=== PATIENT | male | born 1970 | race Caucasian/White ===

== ENCOUNTER 2025-04-28 14:30 | Inpatient (IN) | payer OTHER, SELFPAY ==
[2025-04-28] VITALS (12 sets, daily range): BP systolic 114–201; BP diastolic 62–110; BMI 34.4
--- NOTE | 2025-04-28 09:28 | ED.CVA ---
History of Present Illness
General
Chief Complaint: CVA/TIA Symptoms
Source: patient
Exam Limitations: none
Time Seen by Provider: 04/28/25 09:22
Nursing documentation reviewed up to this point in time: agreed with
Onset of Stroke Symptoms
Onset of symptoms known: Yes
Date of onset of symptoms: 04/27/25
Time of onset of symptoms: 18:00
Time pt last seen normal is known: Yes
Date last time pt seen normal: 04/27/25
History of Present Illness
History of Present Illness:
Note:
CHIEF COMPLAINT(S)
Headache, nausea, and right-sided weakness.
HISTORY OF PRESENT ILLNESS
The patient is a 54-year-old male who presents with symptoms of headache, nausea, and weakness on the left side of the body, which began at 6 p.m. the previous evening. The patient mentions a slight difficulty walking and a weak feeling upon getting
out of the truck, though he also reports driving to urgent care and then to the current facility without major issues. The patient denies any facial numbness or significant trouble with vision, noting some blurring as normal for him. He reports that
symptoms persist, and physical examination indicates no facial droop or significant neurological deficits.
PAST SURGICAL HISTORY
History of knee surgery.
SOCIAL HISTORY
The patient drinks red wine occasionally.
PHYSICAL EXAM
General: Alert, no acute distress.
Skin: Warm, dry.
Head: Normocephalic, atraumatic.
Neck: Supple, trachea midline, no jugular venous distention observed.
Eye, Ears, Nose, and Throat: Pupils equal and reactive to light. Oral mucosa moist.
Cardiovascular: S1 S2 normal, no murmurs, normal peripheral perfusion, no edema.
Respiratory: Lung sounds clear bilaterally, respirations are non-labored.
Gastrointestinal: Abdomen soft, non-tender, and non-distended.
Back: Normal range of motion, normal alignment.
Musculoskeletal: Normal range of motion, normal strength.
Neurological: Cranial nerves 2 through 12 intact, no focal neurological deficit observed.
Psychiatric: Cooperative, appropriate mood and affect.
PLAN
The plan includes a CT scan of the head, consultation with neurology, blood tests, and an EKG to evaluate further for potential causes of the patients symptoms.
DIFFERENTIAL DIAGNOSIS
The Differential Diagnosis includes, in no particular order and is not limited to:
1. Transient Ischemic Attack
2. Stroke
3. Migraine
4. [place] Palsy
5. Hypertensive Crisis
6. Vestibular Disorder
7. Tumor
8. Multiple Sclerosis
9. Hypoglycemia
10. Alcohol Withdrawal
CARE-UPDATE
04/28/25 - 13:18
No acute findings on CT head or CT angiography head and neck. Neurology recommends admission. Diagnosed with acute cerebral-vascular event (CDA) versus transient ischemic attack (TIA) versus hypertensive emergency. Blood pressure improved with IV
hydralazine, repeat dose planned. Patient administered aspirin.
EKG
My independent EKG interpretation is:
- Time of EKG: Not specified
- Rhythm: Normal sinus rhythm
- Heart rate: 65 bpm
- [place] Interval: Normal
- QRS Duration: Normal
- QT Interval: Normal
- [place]: Normal
- Abnormalities: None noted
Disposition:
SUMMARY OF ENCOUNTER
The patient, a 54-year-old male, presented to the emergency department with symptoms of headache, nausea, and left-sided weakness. These symptoms began the previous evening and included slight difficulty walking and weakness upon getting out of a
truck. The patient drove himself to the current medical facility. Despite stable vitals and no acute distress, the presentation was suggestive of a potential acute cerebrovascular accident (CVA) or transient ischemic attack (TIA). No acute findings
appeared on the CT of the head or angiography. Blood pressure was improved with intravenous hydralazine. An EKG was performed showing normal sinus rhythm, and no contraindication for thrombolysis with a low Modified NIH Stroke Scale (MAHSS) score.
Neurology was consulted and recommended hospital admission for telemetry monitoring. Aspirin was administered in light of a potential acute CBA versus hypertensive urgency. TNK (Tenecteplase) was not indicated due to timing.
DISPOSITION
Admit to telemetry unit.
ASSESSMENT
The patient is evaluated for an acute cerebrovascular event, with differential diagnoses including transient ischemic attack and hypertensive emergency.
EMERGENCY TREATMENTS ADMINISTERED
The patient was administered aspirin and treated with intravenous hydralazine to manage blood pressure.
MANAGEMENT OF THE PATIENTS CARE WAS DISCUSSED WITH
Consultation with neurology led to the recommendation for hospital admission to telemetry. A hospitalist was also involved in the discussion regarding the patients management.
PLAN
The patient will be admitted to telemetry for continuous monitoring and further evaluation by neurology to differentiate between an acute cerebral event and other possible causes. Blood pressure management will continue with repeat doses of
hydralazine and further medication adjustment as necessary.
INDEPENDENT REVIEW OF LABS AND INTERPRETATION OF TESTS
- My independent interpretation of the EKG is a normal sinus rhythm with a heart rate of 65 bpm, normal [place] interval, QRS duration, QT interval, axis, and no abnormalities noted.
- My independent review of the CT scan of the head shows no acute findings.
MEDICATION RECONCILIATION
Aspirin and intravenous hydralazine were administered as part of the emergency treatment.
MEDICAL DECISION MAKING
- Number and Complexity of Problems Addressed: Chronic conditions affecting care include the history of knee surgery. Differential diagnosis includes transient ischemic attack, stroke, migraine, [place] palsy, hypertensive crisis, vestibular disorder,
tumor, multiple sclerosis, hypoglycemia, and alcohol withdrawal.
- Data:
Category 1: An EKG was completed with normal results. A CT scan of the head was reviewed and showed no acute findings.
Category 3: Discussion of management with neurology and a hospitalist regarding patient care and the decision for admission.
- Risk: The intricate decision-making process involved identifying the need for hospital admission, considering the potential for an acute cerebrovascular accident and the complexity of managing elevated blood pressure.
DIAGNOSIS
1. Acute cerebrovascular accident (CVA) - ICD-10: I63.9
2. Hypertensive urgency - ICD-10: I16.0
Phy Exam
Physical Exam
Physical Exam:
.
Course
Orders/Labs/Results
Orders:
Orders
04/28/25 09:29
Electrocardiogram (*1) Stat
Reason for Study: Other
Other Reason for Exam: neuro symptoms
Cardiac Monitoring- Treatment ONCE
EKG- Treatment ONCE
Pulse Ox/cont/shift [RESP] Stat
Quantity: 1
04/28/25 09:33
CT Head & Neck Angio W/wo IV Urgent
Comment:
Reason For Exam: left side numbness
HydrALAZINE [Apresoline] 10 mg IV NOW STA
04/28/25 09:34
Cardiovascular Evaluation Urgent
Comment: ADD ON
Complete Blood Count/With Diff Urgent
Comprehensive Metabolic Panel Urgent
Glycohemoglobin (HgbA1c) Urgent
PTT Urgent
Prothrombin Time Urgent
04/28/25 12:22
HydrALAZINE [Apresoline] 10 mg IV NOW STA
04/28/25 12:27
CRP [C-Reactive Protein] Routine
Comment: May add to blood in lab
Erythrocyte Sed Rate Routine
Comment: may add to blood in lab
Ferritin Routine
Folate Routine
Comment: May add to blood in lab
TSH Reflex To Free T4 Routine
Comment: May add to blood in lab
Vitamin B12 Routine
Comment: May add to blood in lab or draw as routine
04/28/25 12:29
Alcohol Routine
CPK Isoenzyme Routine
Comment: May add to blood in lab
Urine Drug Abuse Screen Routine
Lorazepam [Ativan] 1 mg PO ONCE ONE
04/28/25 12:30
MR Brain W/o & With Contrast Routine
Comment:
Reason For Exam: Left sided numbness
Recent pill cam endoscopy?: No
04/28/25 12:38
NEUROLOGY CONSULT Urgent
Consulting Provider: Denzel Fair
Was physician already notified: Yes
Reason for consult: left side numbness
04/28/25 12:45
Add On- LAB Urgent
Tests Added?: alcohol, tsh reflex, ferritin, folate, vit B12, CRP, sed rate
04/28/25 13:02
Add On- LAB Routine
Tests Added?: lipid panel, hbA1c
04/28/25 13:06
Clopidogrel Bisulfate [Plavix] 300 mg PO NOW STA
04/28/25 14:00
Aspirin Chewable [Low Strength Aspirin] 81 mg PO DAILY
04/29/25 08:00
Clopidogrel Bisulfate [Plavix] 75 mg PO DAILY
Abnormal Lab Results
04/28/25
09:34
MCH 31.1 H pg
(27.0-31.0)
Glucose 114 H mg/dl
(70-99)
Total Bilirubin 1.4 H mg/dl
(0.2-1.3)
04/28/25 09:34
04/28/25 09:34
Vital Signs
Initial and Last Documented VS:
Initial Vital Signs
Temp Pulse Resp BP Pulse Ox
97.9 F 67 16 201/97 98
04/28/25 09:10 04/28/25 09:10 04/28/25 09:10 04/28/25 09:10 04/28/25 09:10
Last Documented Vital Signs
Temp Pulse Resp BP Pulse Ox
97.9 F 73 16 190/103 98
04/28/25 09:10 04/28/25 13:00 04/28/25 13:03 04/28/25 13:00 04/28/25 13:03
*Pulse Oximetry
SaO2: 98
Oxygen Mode of Delivery: Room air
Patient hypoxic: no
*Critical Care Note
Total Time (30-74mins, 75-104mins- exclusive of procedures): 32
comment:
Critical care statement: A total of 32 minutes of critical care time was provided for this patient. This includes management of unstable vital signs, evaluation of the patient at bedside, reviewing the patient's pertinent medical records, discussion
with consultants, review of old EKGs and review of pertinent medical records. This time with separate from time utilized to perform the aforementioned documented procedures
ED Attending Note
-
Portions of this chart may have been created with voice recognition software.� Occasional wrong word or��sound alike� substitutions may have occurred due to the inherent limitations of voice recognition software.
Discharge Plan
Departure
Patient Disposition: Admit
Date of Disposition: 04/28/25
Time of Disposition: 13:11
Admit to: Telemetry
Presentation/result/management discussed w/ accepting MD/DO: Hospitalist
Patient with high blood pressure during this ER visit?: Yes
Condition: Fair
Discharge Problem:
Acute cerebrovascular accident (CVA), Hypertensive urgency
Referrals:
UNKNOWN - PT DOES,NOT KNOW [Family Provider]
Interventions
Interventions:
*Risk Screen - Suicide Last Done: 04/28/25 09:10
*General Assessment Last Done: 04/28/25 09:36
*Neglect/Abuse Screening Last Done: 04/28/25 09:10
*ED- Fall Risk Assessment Last Done: 04/28/25 09:36
*ED COVID-19 Vaccine History Last Done: 04/28/25 09:36
ED- Pulmonary Assessment Last Done: 04/28/25 09:38
ED- Neurological Assessment Last Done: 04/28/25 09:38
ED- Cardiac Assessment Last Done: 04/28/25 09:38
ED Swallowing Screen Last Done: 04/28/25 09:37
Discharge Date and Time
Print Language: JAPANESE
[2025-04-28] MEDS: APRESOLINE 10 MG IV ×2 (09:42→13:08)
[2025-04-28 09:57] LABS: Hematocrit 44.6 % (39.0-52.0); Hemoglobin 15.5 g/dL (13.0-18.0); Mean Corp Hgb Conc. 34.8 g/dL (33.0-37.0); Mean Corpuscular Volume 89.6 fL (80.0-94.0); Nucleated Red Blood Cells % 0 % (-); Platelet Count 191 10^3/uL (130-400); Red Cell Dist. Width 12.9 % (11.5-14.5)
[2025-04-28 09:59] LABS: INR 0.95; PT 13.0 Sec (11.4-14.6)
[2025-04-28 10:00] LABS: APTT 25.1 Sec (23.4-35.0)
[2025-04-28 10:01] LABS: ALT (SGPT) 44 U/L (0-50); AST (SGOT) 46 U/L (17-59); Albumin 4.6 g/dl (3.5-5.0); Alkaline Phosphatase 67 U/L (38-126); Blood Urea Nitrogen 11 mg/dl (9-20); Calcium 9.2 mg/dl (8.4-10.2); Carbon Dioxide 24 mmol/L (22-30); Chloride 106 mmol/L (98-107); Glucose 114 mg/dl (70-99); Potassium 4.2 mmol/L (3.5-5.1); Sodium 137 mmol/L (135-145); Total Protein 7.2 g/dl (6.3-8.2); eGFR > 60.00
--- NOTE | 2025-04-28 12:45 | CON.NEURO4 ---
Addendum entered and electronically signed by Denzel Fair MD 04/28/25 14:33:
Studies reviewed.
I have personally examined the patient. I reviewed and agree with the ADULT DAY CARE WORKER's Note.
My addenda:
Awake, alert, interactive. No acute distress.
Speech intact.
Follows 2-step requests w/o difficulty. No tremor.
Extra-ocular movements grossly intact.
Facial movements full and symmetric. Hearing intact to normal conversational volume.
Normal UE movements bilaterally.
Neck: full ROM.
Chest: no dyspnea
Heart: no JVD
Ext: (-) Clubbing, (-) Cyanosis, (-) Edema
IMPRESSIONS/RECOMMENDATIONS:
Abrupt onset of left-sided paresthesia and weakness with significant hypertension and significant alcohol intake. Differential diagnosis includes acute ischemic stroke, less possibly his prior C6 injury from trauma distantly
Check MRI of brain
Goal of near normotension as the patient's onset of symptoms were at 1800 hrs. yesterday
Watch for alcohol withdrawal
Check blood work potential metabolic abnormalities
Check CTA, completed and unremarkable
Consider use of pregabalin if structural abnormality not discovered
D/W patient / family
All questions answered.
Will continue to follow patient.
Original Note:
Documented by User: Barbara Church NP 04/28/25 13:43
Consultation - Neurology 4
-
CONSULTING PHYSICIAN: Denzel Fair MD
REFERRING PHYSICIAN: ER/Dr. Bañuelos
DICTATED BY: TONYA Hernandez
DATE/TIME OF REQUEST: 04/28/25
DATE/TIME OF CONSULTATION: 04/28/25
Reason for Consultation: Left sided paresthesias and weakness
History of Present Illness:
This is a 54-year-old right-handed male who has presented to the hospital with report of left-sided weakness, paresthesias, and brain fog. Patient reports that he has just finished working 30 days in a row and has been under a significant amount of
stress. Yesterday (04/27/25) at 1800 he was getting ready to leave a job site when suddenly his entire left hand became numb. He asked his coworker for an aspirin and reports taking a full dose aspirin at 1830. He reports feeling exhausted upon
returning home, which is not unusual for him; he used his Bemer device on his left arm to try to improve circulation and went to bed at 1930. He woke up at 0300 to use the bathroom and his left leg felt weak, it was giving out under his weight and
he had to furniture reach to make it to the bathroom. He went back to bed and reports waking up again at 0600, at which time he noticed that his left hand visual display associate felt weak, his left leg felt like it was 'not there,' he had a sore/numb sensation in his
left upper and lower arm and his left thigh, and he had a sensation of fogginess. He notes that nightly for 2 years he has felt foggy after work, but he doesn't typically feel this way early in the day. He went to urgent care for evaluation and was
referred to the ER. Blood pressure was 201/97 on arrival. CTA head/neck was obtained and is negative for any acute abnormalities. NIHSS is currently 0. He is not a candidate for TNK/IAT due to being outside of the time window and no LVO. He denies
any headache, dizziness, vision changes, speech/swallow difficulty. He does note a 6 month history of numbness in bilateral toes in the evenings only and some slowness 'getting his legs moving' after getting out of his work truck. He reports having
a C6 fracture at age 15. He denies any neck or back pain and bowels/bladder have been normal. He notes that he checks his blood pressure at home at times and it has always been okay. He denies any history of TIA, stroke, or similar events in the
past.
Past Medical History: C6 fracture age 25, L biceps tear
Surgical History: Left knee surgery.
Family History: Reviewed and noncontributory.
Social History: Denies tobacco. Occasional wine. Occasional marijuana.
Allergies: No known allergies.
Home Medications: None.
Review of Symptoms:
Patient denies any fever, headache, chest pain, shortness of breath, GI or symptoms.
�Per the HPI.�All systems are reviewed negative except above.
Physical Exam:
The patient is afebrile, abdomen is nondistended, breathing is unlabored, skin is warm and dry, no edema.
NIH Stroke Scale:
I performed the NIH stroke scale on the patient on 04/28/25 at 1255. The patient scored 0 points on the NIH stroke scale assessment.
Neurologic Examination:
The patient is awake, alert and oriented x 3. He is able to follow commands and answer questions appropriately. There is no aphasia or dysarthria. On cranial nerve assessment, pupils are 3 mm bilateral, round and reactive to light and
accommodation. Visual smith are full. Extraocular movements are intact. Facial sensations are intact and bilaterally symmetrical, there is no facial asymmetry. Hearing is intact bilaterally to normal conversation volume. Tongue palate and uvula are
midline. Sternocleidomastoid strengths are full bilaterally. Motor strengths are 5/5 bilateral upper and lower extremities on medical research [place] scale. There is no drift or involuntary movement noted. Deep tendon reflexes are 2+ bilateral
upper and lower extremities and Babinski is absent bilaterally. Sensation of temperature is mildly reduced in the LUE. There was no extinction noted on double simultaneous stimulation. Coordination is intact by finger to nose bilaterally.
Lab Results: See below.
Neuro Imaging:
1. CTA Head/Neck 04/28/25: No acute intracranial abnormality. No large vessel occlusions, dissections, or aneurysm.
Differentials for the patient's presentation include:
1. Left-sided weakness and sensation changes; etiology concerning for a small ischemic stroke.
2. Hypertensive urgency.
Patient has the following risk factors for their symptoms: HTN, stress
IV Tenecteplase/IAT candidacy: He is not a candidate for TNK/IAT due to being outside of the time window and no LVO.
Recommendations:
-Initiate DAPT with aspirin 81mg and clopidogrel 75mg daily for 21 days. Provide a loading dose of clopidogrel now, regular dose aspirin as he took a loading dose yesterday. After 21 days, stop clopidogrel and continue aspirin 81mg daily only,
indefinitely.
-Slow lowering of blood pressure.
-MRI brain w/ and w/o contrast pending.
-LDL goal <70. Lipid panel is pending. Initiate atorvastatin 40mg daily.
-Goal normoglycemia, hbA1c is pending.
-Checking blood work for metabolic abnormalities.
-NIHSS and neurological checks per unit guidelines.
-Provide patient with a stroke education packet.
-PT/OT evaluations.
-DVT prophylaxis.
Discussed patient care with: Dr. Fair, the patient, patient's family
Vital Signs and Labs
-
Vital Signs and Labs:
Vital Signs
Temp Pulse Resp BP Pulse Ox
97.9 F 64 16 170/96 97
04/28/25 09:10 04/28/25 12:00 04/28/25 11:33 04/28/25 12:00 04/28/25 12:04
Lab Results
04/28/25 09:34
04/28/25 09:34
PT 13.0 Sec (11.4-14.6) 04/28/25 09:34
INR 0.95 04/28/25 09:34
APTT 25.1 Sec (23.4-35.0) 04/28/25 09:34
Sodium 137 mmol/L (135-145) 04/28/25 09:34
Potassium 4.2 mmol/L (3.5-5.1) 04/28/25 09:34
BUN 11 mg/dl (9-20) 04/28/25 09:34
Glucose 114 mg/dl (70-99) H 04/28/25 09:34
Calcium 9.2 mg/dl (8.4-10.2) 04/28/25 09:34
NIH Stroke Score
Subsequent NIH Scale
Date of Subsequent NIH Scale: 04/28/25
Time of Subsequent NIH Scale: 12:55
NIH Stroke Score
Level of Consciousness: 0 - Alert
LOC Questions: 0-Answers both correctly
LOC Commands: 0-Performs both correctly
Best Horizontal Gaze: 0-Normal
Visual Smiht: 0=Normal, no visual loss
Facial Palsy: 0=Normal, symmetrical
Motor - Right Arm: 0=No drift 10 seconds
Motor - Left Arm: 0=No drift 10 seconds
Motor - Right Le-No drift 5 seconds
Motor - Left Le-No drift 5 seconds
Limb Ataxia: 0-Absent
Sensation: 0-Normal
Best Language: 0-No aphasia
Dysarthria: 0-Normal
Extinction and Inattention: 0-No abnormality
NIH Total Score:: 0
Modified [place] (mRS) Score
Modified [place] Scale (mRS): No symptoms
Score: 0
Alteplase Contraindication
Inclusion and Exclusion criteria reviewed: Yes
Reasons for NON-Tx with Thrombolytics ABSOLUTE Exclusions: Greater than 4.5 hrs from onset of sxs
IAT Contraindications: Imaging doesn't show large vessel occlusion as cause of stroke

Documented by User: Denzel Fair MD 04/28/25 14:25
NIH Stroke Score
NIH Stroke Score
NIH Total Score:: 0
Modified [place] (mRS) Score
Score: 0
[2025-04-28] MEDS: LOW STRENGTH ASPIRIN 81 MG PO (13:25)
[2025-04-28] MEDS: PLAVIX 300 MG PO (13:25)
--- NOTE | 2025-04-28 13:34 | W.PN.UPDATE ---
Update Note
Progress Note Update
This note serves as an addendum to the H&P by operating room nurse TERI�
Ela DIETERICK
HPI
54M Rt hand dominant, seen at ER;
- acute onset of Lt arm and Leg weakness and numbness around 6 pm
- POS diaphoresis and nausea
- No CP or SoB
- BP 201/97 on arrival s/p IV hydralazine 10mg x2
- S/P ASA 81mg + Plavix 300mg given at ER
- Daily bottle of wine
PHX
History of knee surgery.
SHX
drinks red wine bottle daily
smoke cigar and Marijuana
Relevant�VS:
PE
Obese
Gen: NAD
HEENT: flushed face, symmetric facial expression, Nl speech and vol, no toungue devaition
Neck: supple
Lungs: CTA
Cor: RRR S1 S2 No mm
Abdomen:�benign exam
THEATRICAL PERFORMER: AAO3, grossly intact CN, NFND
MS: no edema
Psych: appropriate mood and affect.
Relevant data�
Unremarkable CBC, BMP
BG 114
Pending A1C , CPK , CRP , Ferritin , B12, FA, TSH, GGT
TB 1.4
H & N CTA
1. No acute intracranial abnormality.
2. No large vessel occlusions, dissections, or aneurysm.
Pending Brain MRI
NO PRIOR hospitalist admission:
ASSESSMENT & PLAN
Pending Rx reconciliation
Acute onset of Lt sided weakness and paraesthesia - DDX: TIA vs acute CVA in setting of HTN urgency
Risk: untreated HTN
- NEG H & N CTA
- S/P ASA 81mg + Plavix 300mg given at ER
- c/w DAPL daily
- Goal BP control - normotension
- Pending brain MRI
- Pending A1C , CPK , CRP , Ferritin , B12, FA, TSH
- Pending Lipids
- Neuro consulted
HTN urgency inadequate response to IV Hydralazine 10mg x 1
Suspect untreated essentia HTN
FHX HTN
S/p IV Hydralazine PRN
- start Lisinopril 5mg now and BID and observe BP
- IV Hydralazine PRN - goal normotension
Strongly suspect ETOH use disorder: severe , bottle of wine daily
HX of THC use ? disorder
Former smoker for last 10 yrs
- check GGT
- check UDS to complete
- Pending ETOH level
- ETOH WD protocol with PHB protocol
Obesity
- pending BMI
DVT Px - SCD
Full code
IP TLM
[2025-04-28 13:50] LABS: HDL Cholesterol 99 mg/dl; LDL Cholesterol, Calculated 152 mg/dl; Very Low Density Lipoprotein 26 mg/dl (0-30)
--- NOTE | 2025-04-28 13:52 | HPS.HSE ---
Family Physician
-
Family Physician: NOT KNOW UNKNOWN - PT DOES
Chief Complaint
-
Left sided numbness
History of Present Illness
Patient is a 54 y/o male who presents with left sided numbness. Patient reports he started with left hand numbness around 6pm yesterday. He reports numbness spread up to the arm to just below the shoulder. He reports in the middle of the night he
got up to use the bathroom and noticed his left leg was weak. He reports overall feeling foggy. This morning symptoms persisted so he went to urgent care who referred him to the emergency department for evaluation. Upon arrival his BP was
significantly elevated at 201/97. He monitor his blood pressure at home and notes most of the time blood pressure is around 120/90 but he will get spikes during the day due to stress at work.
Medical History
Past Medical History
Past Medical History: Reports Other
Additional Past Medical History:
Alcohol Use Disorder
Past Surgical History: Reports Other
Additional Past Surgical History:
Right Knee Meniscus Surgery
Social History
Tobacco: Other (Former cigarette smoker quit ~10 years; Occasional cigar currently)
Alcohol: Daily (One bottle of red wine nightly)
Drug: Marijuana (Occasionally)
Family History
Family History: Other (Mother: Hypertension; Father: from cardiac disease)
Allergies / Home Medications
Allergies reflects when Allergies were last updated in [employer].
Home Medications with original date entered in [employer]
Allergy/Medication List:
Allergies
Allergy/AdvReac Type Severity Reaction Status Date / Time
No Known Allergies Allergy Unverified 04/28/25 09:09
Review of Systems
-
A 12 point ROS was completed and negative except as noted: Yes
Constitutional: Denies Fever
Respiratory: Denies Cough or Trouble Breathing
Cardiac: Denies Chest Pain or Palpitations
Physical Exam
Vital Signs
Vital Signs
Temp Pulse Resp BP Pulse Ox
97.9 F 73 16 190/103 98
04/28/25 09:10 04/28/25 13:00 04/28/25 13:03 04/28/25 13:00 04/28/25 13:03
Physical Exam
General: Comfortable and Conversant
HEENT: NormoCephalic, Anicteric and Other (Face is flushed)
Respiratory: Clear and Non Labored Respirations
Cardiac: S1/S2 and Regular Rhythm
GI: Soft and Non Tender
Musculoskeletal: No Clubbing and No Cyanosis
Skin: Warm and Dry
Neuro: Awake, Alert, Oriented and No Motor Deficits; No Slurred Speech, Facial Droop or Tremors
Psych: Calm
Laboratory Results
-
04/28/25 09:34
04/28/25 09:34
Laboratory Results
PT 13.0 Sec (11.4-14.6) 04/28/25 09:34
INR 0.95 04/28/25 09:34
APTT 25.1 Sec (23.4-35.0) 04/28/25 09:34
Total Bilirubin 1.4 mg/dl (0.2-1.3) H 04/28/25 09:34
AST 46 U/L (17-59) 04/28/25 09:34
ALT 44 U/L (0-50) 04/28/25 09:34
Alkaline Phosphatase 67 U/L (38-126) 04/28/25 09:34
Data Reviewed
-
CT Scan: Report Reviewed by me
Lab Data: Labs Reviewed by me
Impression/Plan
-
Left-Sided Numbness/Weakness, clinical concern for acute stroke
-Appreciate Neurology
-Check Brain MRI
-Check HgbA1c and Lipid Panel
-Consult PT/OT
-Continue Aspirin and Plavix
-Start Lipitor
Hypertensive Urgency
-Start lisinopril 5mg BID
-Continue Hydralazine PRN
-Check TSH
Alcohol Use Disorder
-Continue thiamine and folic acid
-Start phenobarbital taper
-Monitor MSAS
DVT proph: SCDs
Code Status: Full Code
[2025-04-28] MEDS: ZESTRIL 5 MG PO ×2 (14:21→20:23)
[2025-04-28 14:28] LABS: Glycohemoglobin (HgbA1c) 5.4 % (4.0-5.6)
--- NOTE | 2025-04-28 14:59 | CM ---
Patient seen bedside w/ sister in the ED. Initial assessment completed. Patient is a 54 y/o male who presents with left sided numbness.
Patient resides alone in a 2ST[facility], 2 steps to enter from the outside. Patient is independent in all areas. No DME reported. OP therapy years ago after ACL and meniscus repair.
Address, point of contact and insurance verified
PCP: Patient does not have one at this time. Patient stated that he will explore a PCP when he needs to.
Pharmacy: [facility]
Plan: Home, will watch for any needs
--- NOTE | 2025-04-28 16:48 | PTCARENOTE ---
Pt refused the Pheno. He said he does not drink a bottle every night. He is a social drinker.
[2025-04-28] MEDS: LIPITOR 80 MG PO (17:03)
[2025-04-28 18:29] LABS: C-Reactive Protein < 5.00 mg/L (0.0-10.00)
[2025-04-28 18:59] LABS: CKMB 3.3 ng/ml (0.0-3.4)
[2025-04-28 19:04] LABS: Ferritin 460.0 ng/ml (17.9-464.0)
[2025-04-28 19:35] LABS: Folate 8.2 ng/ml (2.76-20)
[2025-04-28] MEDS: THIAMINE INJECTION 200 MG IV (20:23)
[2025-04-28 20:34] LABS: Vitamin B12 230 pg/ml (239-931)
--- NOTE | 2025-04-28 22:32 | PTCARENOTE ---
House provider verbally notified that patient continues to refuse the ordered Phenobarbital. Pt educated on S/S of withdraw including MSAS. MSAS currently 0 and will continue to closely monitor/educate.
[2025-04-29 03:49] VITALS: BP 137/89
[2025-04-29 07:36] LABS: Hematocrit 42.9 % (39.0-52.0); Hemoglobin 14.7 g/dL (13.0-18.0); Mean Corp Hgb Conc. 34.3 g/dL (33.0-37.0); Mean Corpuscular Volume 91.3 fL (80.0-94.0); Platelet Count 178 10^3/uL (130-400); Red Cell Dist. Width 13.2 % (11.5-14.5)
[2025-04-29 07:45] VITALS: BP 143/87
[2025-04-29 08:27] LABS: Blood Urea Nitrogen 9 mg/dl (9-20); Calcium 9.0 mg/dl (8.4-10.2); Carbon Dioxide 27 mmol/L (22-30); Chloride 105 mmol/L (98-107); Estimated Creatinine Clearance > 125 ml/min; Glucose 95 mg/dl (70-99); Magnesium 2.0 mg/dl (1.6-2.3); Potassium 4.3 mmol/L (3.5-5.1); Sodium 137 mmol/L (135-145); eGFR > 60.00
[2025-04-29] MEDS: FOLVITE 1 MG PO (08:57)
[2025-04-29] MEDS: ZESTRIL 5 MG PO (08:57)
[2025-04-29] MEDS: THIAMINE INJECTION 200 MG IV (08:57)
[2025-04-29] MEDS: PLAVIX 75 MG PO (08:57)
[2025-04-29] MEDS: LOW STRENGTH ASPIRIN 81 MG PO (08:57)
[2025-04-29] MEDS: VALIUM INJECTION 5 MG IV (09:15)
[2025-04-29 11:34] VITALS: BP 135/86
--- NOTE | 2025-04-29 11:46 | W.PN.HOSP.TC ---
Addendum entered and electronically signed by Alex Cantu MD 04/29/25 14:58:
[id number]
Addendum entered and electronically signed by Alex Cantu MD 04/29/25 13:33:
MRI Neg
TIA resolved
DAPT 21 days, then ASA alone
F/u neuro outpt
Statin
Original Note:
Today's Communication/Plan
-
await MRI
continue statin
DAPT depending on imaging
PT/OT
F/u neuro, pcp outpt
Assessment / Plan
Assessment / Plan
Physical Exam
General: Comfortable and Conversant
HEENT: NormoCephalic, Anicteric More than 30 minutes spent in discharge including
Respiratory: Clear and Non Labored Respirations
Cardiac: S1/S2 and Regular Rhythm
GI: Soft and Non Tender
Musculoskeletal: No Clubbing and No Cyanosis
Skin: Warm and Dry
Neuro: Awake, Alert, Oriented and No Motor Deficits; No Slurred Speech, Facial Droop or Tremors
Psych: Calm
Left-Sided Numbness/Weakness, clinical concern for acute stroke v TIA
-Appreciate Neurology
-Check Brain MRI
-Check HgbA1c: 5.4 and Lipid Panel: Over 152
-Aspirin and Plavix if positive for CVA
-Start Lipitor
Hypertensive Urgency
-Start lisinopril 5mg BID
-Check TSH - WNL
Alcohol Use Disorder
-doesnot appear to be in withdrawal
-Continue thiamine and folic acid
-Start phenobarbital taper
-Monitor MSAS
#HLD
-statin
-diet and exercise
DVT proph: SCDs
Code Status: Full Code
Final examination of the patient
Summarizing hospital stay
Instructions for continuing care to all relevant caregivers
Preparation of discharge records, prescriptions, and referral forms
Total time spent (in minutes): 36
Anticipated Discharge: Today
Subjective/Interval History
-
Date of Service: April 29, 2025
No acute events, no active withdrawal
Objective Data
-
Labs:
Laboratory Results
04/29/25
06:19
WBC 7.2
Hgb 14.7
Hct 42.9
Plt Count 178
Sodium 137
Potassium 4.3
Chloride 105
Carbon Dioxide 27
BUN 9
Creatinine 0.8
Glucose 95
Calcium 9.0
Vital Signs:
Vital Signs
Temp Pulse Resp BP Pulse Ox
97.8 F 64 18 135/86 97
04/29/25 11:34 04/29/25 11:34 04/29/25 11:34 04/29/25 11:34 04/29/25 11:34
I&O
04/28/25 04/29/25 04/30/25
06:59 06:59 06:59
Intake Total 960 / 960
Balance 960 / 960
Review of Systems
-
History Source: Patient
All other systems: Not reviewed unless documented
Data Reviewed
-
CT Scan: Report Reviewed by me
Labs: Labs Reviewed by me
[2025-04-29 13:27] VITALS: BP 141/80; PULSE 79; O2SAT 96
--- NOTE | 2025-04-29 13:33 | W.DS.TRANS ---
DC Summary - Conservation Technician
-
Discharge Instructions:
Discharge Diagnosis/Procedures Left sided numbness, TIA
Diet Low Cholesterol,Low Fat
Activity As tolerated
Blood Work cbc and cmp in 1 week with pcp
Instructions:
Stand-Alone Forms:
Changes to Home Medications: Yes
Discharge Medications:
DC Medications w/original date entered in [employer]
Jose's wort 300 mg capsule 300 mg PO DAILY 04/28/25
feverfew 380 mg capsule 1 cap PO DAILY 04/28/25
milk thistle 150 mg capsule 150 mg PO DAILY 04/28/25
turmeric 400 mg capsule 400 mg PO DAILY 04/28/25
aspirin 81 mg chewable tablet 81 mg PO DAILY 30 days #30 tabs 04/29/25
atorvastatin 80 mg tablet 80 mg PO QPM 30 days #30 tabs 04/29/25
clopidogrel 75 mg tablet 75 mg PO DAILY #20 tabs 04/29/25
lisinopril 5 mg tablet 5 mg PO BID 30 days #60 tabs 04/29/25
Home Medication Changes
aspirin 81 mg chewable tablet 81 mg PO DAILY 30 days #30 tabs 04/29/25
atorvastatin 80 mg tablet 80 mg PO QPM 30 days #30 tabs 04/29/25
clopidogrel 75 mg tablet 75 mg PO DAILY #20 tabs 04/29/25
lisinopril 5 mg tablet 5 mg PO BID 30 days #60 tabs 04/29/25
Pending Results: No
[2025-04-29 13:43] VITALS: BP 141/80; PULSE 79; O2SAT 96
--- NOTE | 2025-04-29 13:48 | PTOTSP ---
Speech therapy
Presentation: Patient was oriented and followed commands WNL. Patient's speech and language appeared to be WNL during conversation with WILDLIFE POLICY PROFESSIONAL and visitor. Patient denied any communicative deficits.
Swallowing Function: Patient was observed with several bites of regular consistency solids and sips of thin liquids (straw) in which patient appeared to tolerate as he did not exhibit any overt clinical s/sx of aspiration or manipulation. Patient
denied dysphagia complaints.
Recommendations:
1) Reg/ thin
2) Aspiration precautions
3) Medications as tolerated
Plan: WILDLIFE POLICY PROFESSIONAL will sign off at this time as patient appeared to be at baseline and patient is anticipating d/c today.
--- NOTE | 2025-04-29 14:56 | W.PN.NEURO.1 ---
Today's Communication / Plan
-
TIA
21 days of DAPT
stable for discharge
Neuro Assessment/Plan
Assessment
brain MRI imgs rev'd, normal, no stroke
CTA head/neck no LVO, no significant stenosis
HDL 99, LDL 152
54 year old man with TIA, fully resolved.
would continue 21 days of ASA/Plavix followed by ASA monotherapy, and lipitor 80
discussed additional Afib monitoring, he's not interested in ILR, plans to wear apple watch
Subjective/Objective
Subjective Data
Date of Service: April 29, 2025
patient reports left sided deficits are resolved
Objective Data
Vital Signs
Temp Pulse Resp BP Pulse Ox
36.6 C 64 18 135/86 97
04/29/25 11:34 04/29/25 11:34 04/29/25 11:34 04/29/25 11:34 04/29/25 11:34
Lab Results
04/29/25 06:19
04/29/25 06:19
PT 13.0 Sec (11.4-14.6) 04/28/25 09:34
INR 0.95 04/28/25 09:34
APTT 25.1 Sec (23.4-35.0) 04/28/25 09:34
Sodium 137 mmol/L (135-145) 04/29/25 06:19
Potassium 4.3 mmol/L (3.5-5.1) 04/29/25 06:19
BUN 9 mg/dl (9-20) 04/29/25 06:19
Glucose 95 mg/dl (70-99) 04/29/25 06:19
Calcium 9.0 mg/dl (8.4-10.2) 04/29/25 06:19
Phosphorus 3.1 mg/dl (2.5-4.5) 04/29/25 06:19
LDL Cholesterol, Calc 152 mg/dl 04/28/25 09:34
Vitamin B12 Cancelled 04/28/25 12:27
Patient Allergies
No Known Allergies Allergy (Unverified 04/28/25 09:09)
Physical Exam
-
AAOx3, speech clear, language intact
VFF, EOMI, face symmetric
full strength b/l UE/LE, no pronator drift
sensation intact to touch/pin
== END 2025-04-29 14:12 | disposition home or self-care (01) | DRG 66 ==
LOC: 4 EAST ACU 14:30
PROVIDERS: Physician Assistant Medical; ADMITTING PHYSICIAN Internal Medicine; ATTENDING PHYSICIAN Internal Medicine; CONSULT PHYSICIAN Psychiatry & Neurology Neurology; EMERGENCY PHYSICIAN Emergency Medicine
DX: I63.9 Cerebral infarction, unspecified (principal); F10.10 Alcohol abuse, uncomplicated; F17.290 Nicotine dependence, other tobacco product, uncomplicated; Z82.49 Family history of ischemic heart disease and other diseases of the circulatory system; I16.0 Hypertensive urgency; Z79.02 Long term (current) use of antithrombotics/antiplatelets; Z79.82 Long term (current) use of aspirin; E66.9 Obesity, unspecified; Z68.34 Body mass index [BMI] 34.0-34.9, adult; I10 Essential (primary) hypertension; Z79.899 Other long term (current) drug therapy
CPT/HCPCS: 70496; 70498; 70553; 80048; 80053; 80061; 82077; 82550; 82553; 82607; 82728; 82746; 83036; 83735; 84100; 84443; 85025; 85027; 85610; 85652; 85730; 86140; 92610; 93005; 96374; 96376; 97162; 97166; 99291; A9575; Q9967